=== PATIENT | male | born 1950 | race Caucasian/White ===

== ENCOUNTER 2021-11-04 09:11 | Day surgery (SDC) | payer MEDICARE, OTHER ==
[~2021-11-04] VITALS: Ht 180.3 cm; Wt 86.2 kg
[~2021-11-04 09:11] MED LIST: LOSARTAN POTAS100 MG PO; NORVASC5 M1 PO; PRAVASTATIN SOD20 MG PO
[2021-11-04 11:57] VITALS: BP 152/92
== END 2021-11-04 11:49 | disposition home or self-care (01) ==
LOC: ENDO 09:11
PROVIDERS: ATTEND Surgery
PROC: 0DBH8ZX Excision of Cecum, Via Natural or Artificial Opening Endoscopic, Diagnostic (ICD-10-PCS; principal; 2021-11-04)
PROC: 0DBN8ZX Excision of Sigmoid Colon, Via Natural or Artificial Opening Endoscopic, Diagnostic (ICD-10-PCS; 2021-11-04)
DX: Z12.11 Encounter for screening for malignant neoplasm of colon (principal); D12.0 Benign neoplasm of cecum; D12.5 Benign neoplasm of sigmoid colon; K64.8 Other hemorrhoids; I10 Essential (primary) hypertension; Z86.010 Personal history of colon polyps; Z80.0 Family history of malignant neoplasm of digestive organs